=== PATIENT | male | born 1985 | race Two or more races ===

== ENCOUNTER 2022-10-27 19:27 | Inpatient (IN) | payer MEDICAID ==
[~2022-10-27] VITALS: Ht 167.6 cm; Wt 65.4 kg
[2022-10-27] MEDS ORDERED: SODIUM CHLORIDE 0.9% 1,000 ML IV ONE (20:00)
[2022-10-27] MEDS ORDERED: LORazepam 2 MG/ML VIAL IVP ONE (20:00)
[2022-10-27 20:07] LABS: BASOPHILS % (AUTO) 1.4 % (0.0-2.0); EOSINOPHILS % (AUTO) 1.6 % (1.0-6.0); HEMATOCRIT 41.2 % (41-53); HEMOGLOBIN 13.8 g/dL (13.5-17.5); LYMPHOCYTES # (AUTO) 2.4 K/uL (1.0-4.8); LYMPHOCYTES % (AUTO) 44.3 % (22.0-44.0); MEAN CORPUSCULAR HGB CONC 33.4 G/dL (31.0-37.0); MEAN CORPUSCULAR VOLUME 93 fL (80-100); MONOCYTES # (AUTO) 0.7 K/uL (0.1-1.0); MONOCYTES % (AUTO) 12.4 % (2.0-9.0); NEUTROPHILS # (AUTO) 2.2 K/uL (1.8-7.7); NEUTROPHILS % (AUTO) 40.3 % (40.0-70.0); PLATELET COUNT (AUTO) 276 K/uL (150-450); RED BLOOD CELL COUNT(AUTO) 4.44 MIL/uL (4.50-5.90); RED CELL DISTRIBUTION WIDTH 18.9 % (11.5-14.5)
[2022-10-27 20:18] LABS: ANION GAP 15 mmol/L (8-16); CARBON DIOXIDE 29 mmol/L (22-29); CHLORIDE 96 mmol/L (98-107); CREATININE 0.88 mg/dL (0.60-1.30); GLUCOSE,RANDOM 141 mg/dL (70-110); POTASSIUM 3.3 mmol/L (3.5-5.1); SODIUM SERUM 140 mmol/L (136-145); UREA NITROGEN, BLOOD 8 mg/dL (7-18)
[2022-10-27 20:19] LABS: GLOMERULAR FILTR. RATE CALC > 60 mL/min (>60)
[2022-10-27 20:24] LABS: ALANINE AMINOTRANSFERASE 98 U/L (12-78); ALBUMIN 3.9 g/dL (3.4-5.0); ALKALINE PHOSPHATASE 61 U/L (46-116); ASPARTATE AMINOTRANSFERASE 218 U/L (15-37); BILIRUBIN,TOTAL 1.8 mg/dL (0.1-1.0); TOTAL PROTEIN, SERUM 8.5 g/dL (6.4-8.2)
[2022-10-27 20:40] LABS: COVID AG,FIA SOURCE NASOPHARYNGEAL
[2022-10-27] MEDS ORDERED: ONDANSETRON HCL 4 MG/2 ML VIAL IVP PRN (21:45)
[2022-10-27] MEDS ORDERED: ACETAMINOPHEN 325 MG TABLET PO PRN (21:45)
[2022-10-27] MEDS ORDERED: LORazepam 2 MG/ML VIAL IVP PRN (21:45)
[2022-10-27 23:00] VITALS: BP 124/80
[2022-10-28] VITALS (7 sets, daily range): BP systolic 124–156; BP diastolic 74–110
[2022-10-28] MEDS ORDERED: MAGNESIUM SULFATE 2 GM/WATER 50 ML IV ONE (00:45)
[2022-10-28] MEDS ORDERED: POTASSIUM CHLORIDE 20 MEQ ER TABLET PO ONE (00:45)
[2022-10-28] MEDS ORDERED: DEXTROSE 50%-WATER 25 GM/50 ML SYRINGE IVP PRN (00:45)
[2022-10-28] MEDS ORDERED: SODIUM CHLORIDE 0.9% 500 ML IV ONE (01:46)
[2022-10-28] MEDS ORDERED: HYDROCODONE/ACETAMINOPHEN 5-325 MG TABLET PO PRN (06:15)
[2022-10-28] MEDS ORDERED: MORPHINE SULFATE 2 MG/ML SYRINGE IVP PRN (06:15)
[2022-10-28] MEDS ORDERED: ZOLPIDEM TARTRATE 5 MG TABLET PO PRN (06:15)
[2022-10-28] MEDS ORDERED: MAGNESIUM HYDROXIDE SUSPENSION 30 ML UDCUP PO PRN (06:15)
[2022-10-28] MEDS ORDERED: MAGNESIUM SULFATE 2 GM, MVI, ADULT NO.1 WITH VIT K 10 ML, THIAMINE 100 MG, FOLIC ACID 1... IV ONE ×5 (06:15)
[2022-10-28] MEDS ORDERED: LORazepam 2 MG TABLET PO PRN (06:15)
[2022-10-28] MEDS ORDERED: BISACODYL 10 MG RECTAL RECTAL SUPPOSITORY PR PRN (06:15)
[2022-10-28] MEDS ORDERED: ACETAMINOPHEN 325 MG TABLET PO PRN (06:15)
[2022-10-28] MEDS ORDERED: ONDANSETRON HCL 4 MG/2 ML VIAL IVP PRN (06:15)
[2022-10-28 06:21] LABS: ANION GAP 12 mmol/L (8-16); CALCIUM, TOTAL 7.7 mg/dL (8.8-10.5); CARBON DIOXIDE 26 mmol/L (22-29); CHLORIDE 100 mmol/L (98-107); CREATININE 0.84 mg/dL (0.60-1.30); GLOMERULAR FILTR. RATE CALC > 60 mL/min (>60); GLUCOSE,RANDOM 110 mg/dL (70-110); POTASSIUM 3.4 mmol/L (3.5-5.1); SODIUM SERUM 138 mmol/L (136-145); UREA NITROGEN, BLOOD 8 mg/dL (7-18)
[2022-10-28] MEDS ORDERED: MAGNESIUM SULFATE 4 GM/WATER 100 ML IV PRN (06:30)
[2022-10-28] MEDS ORDERED: POTASSIUM CHLORIDE 20 MEQ ER TABLET PO PRN (06:30)
[2022-10-28] MEDS ORDERED: MAGNESIUM OXIDE 400 MG TABLET PO PRN (06:30)
[2022-10-28] MEDS ORDERED: MAGNESIUM SULFATE 2 GM/WATER 50 ML IV PRN (06:30)
[2022-10-28] MEDS ORDERED: POTASSIUM CHL 10 MEQ/WATER 50 ML IV PRN (06:30)
[2022-10-28 07:41] LABS: ALBUMIN 3.3 g/dL (3.4-5.0)
[2022-10-28] MEDS: HEPARIN SODIUM,PORCINE 5,000 UNITS/ML VIAL SQ SCH ×3 (08:47→23:47)
[2022-10-28] MEDS: DOCUSATE SODIUM 100 MG CAPSULE PO SCH ×2 (08:48→21:00)
[2022-10-28] MEDS: PANTOPRAZOLE SODIUM 40 MG DR TABLET PO SCH (08:48)
[2022-10-28] MEDS: INSULIN LISPRO 100 UNITS/ML SQ PRN ×4 (09:04→21:21)
[2022-10-28 15:31] LABS: GLUCOMETER DEV NAME(LOC) 5S.2B; GLUCOSE,POINT OF CARE 202 MG/DL (70-110)
[2022-10-28 15:31] LABS: GLUCOMETER DEV NAME(LOC) 5S.1B; GLUCOSE,POINT OF CARE 108 MG/DL (70-110)
[2022-10-28 20:21] LABS: GLUCOMETER DEV NAME(LOC) 5N.1C; GLUCOSE,POINT OF CARE 208 MG/DL (70-110)
[2022-10-29 04:37] VITALS: BP 153/95
[2022-10-29 06:12] LABS: BASOPHILS % (AUTO) 0.9 % (0.0-2.0); EOSINOPHILS % (AUTO) 2.2 % (1.0-6.0); HEMATOCRIT 33.6 % (41-53); HEMOGLOBIN 11.3 g/dL (13.5-17.5); LYMPHOCYTES # (AUTO) 1.1 K/uL (1.0-4.8); MEAN CORPUSCULAR HEMOGLOBIN 31.9 pg (26.0-34.0); MEAN CORPUSCULAR HGB CONC 33.5 G/dL (31.0-37.0); MEAN CORPUSCULAR VOLUME 95 fL (80-100); MONOCYTES # (AUTO) 0.5 K/uL (0.1-1.0); MONOCYTES % (AUTO) 10.6 % (2.0-9.0); NEUTROPHILS # (AUTO) 3.1 K/uL (1.8-7.7); NEUTROPHILS % (AUTO) 63.3 % (40.0-70.0); PLATELET COUNT (AUTO) 177 K/uL (150-450); RED BLOOD CELL COUNT(AUTO) 3.53 MIL/uL (4.50-5.90); RED CELL DISTRIBUTION WIDTH 18.7 % (11.5-14.5)
[2022-10-29 06:20] LABS: ANION GAP 7 mmol/L (8-16); CALCIUM, TOTAL 7.6 mg/dL (8.8-10.5); CARBON DIOXIDE 28 mmol/L (22-29); CHLORIDE 96 mmol/L (98-107); CREATININE 0.85 mg/dL (0.60-1.30); GLOMERULAR FILTR. RATE CALC > 60 mL/min (>60); GLUCOSE,RANDOM 326 mg/dL (70-110); POTASSIUM 3.8 mmol/L (3.5-5.1); SODIUM SERUM 131 mmol/L (136-145); UREA NITROGEN, BLOOD 5 mg/dL (7-18)
[2022-10-29] MEDS: INSULIN LISPRO 100 UNITS/ML SQ PRN (06:57)
[2022-10-29] MEDS ORDERED: LORazepam 2 MG TABLET PO PRN (07:00)
[2022-10-29 07:29] VITALS: BP 153/99
[2022-10-29] MEDS: PANTOPRAZOLE SODIUM 40 MG DR TABLET PO SCH (08:04)
[2022-10-29] MEDS: DOCUSATE SODIUM 100 MG CAPSULE PO SCH (08:04)
[2022-10-29] MEDS: HEPARIN SODIUM,PORCINE 5,000 UNITS/ML VIAL SQ SCH (08:04)
[2022-10-29] MEDS ORDERED: LORazepam 2 MG TABLET PO SCH (09:00)
[2022-10-29 11:05] VITALS: BP 130/100
[2022-10-29] MEDS ORDERED: MAGNESIUM SULFATE 4 GM/WATER 100 ML IV PRN (11:30)
[2022-10-29] MEDS ORDERED: MAGNESIUM OXIDE 400 MG TABLET PO PRN (11:30)
[2022-10-29] MEDS ORDERED: MAGNESIUM SULFATE 2 GM/WATER 50 ML IV PRN (11:30)
[2022-10-29 13:00] LABS: ALBUMIN 3.3 g/dL (3.4-5.0)
[2022-10-29 19:36] LABS: GLUCOMETER DEV NAME(LOC) 5N.1C; GLUCOSE,POINT OF CARE 182 MG/DL (70-110)
[2022-10-29 19:36] LABS: GLUCOMETER DEV NAME(LOC) 5N.1C; GLUCOSE,POINT OF CARE 225 MG/DL (70-110)
[2022-10-31] MEDS ORDERED: LORazepam 1 MG TABLET PO PRN (07:00)
[2022-10-31] MEDS ORDERED: LORazepam 1 MG TABLET PO SCH (09:00)
[2022-11-01] MEDS ORDERED: LORazepam 1 MG TABLET PO PRN (07:00)
== END 2022-10-29 13:00 | disposition left against medical advice (07) | DRG 425 ==
LOC: EMS 19:42 → 5S 22:10
PROVIDERS: ADMIT Internal Medicine; ATTEND Internal Medicine
DX: E87.6 Hypokalemia (principal); K70.9 Alcoholic liver disease, unspecified; E11.65 Type 2 diabetes mellitus with hyperglycemia; E83.42 Hypomagnesemia; I10 Essential (primary) hypertension; Y90.8 Blood alcohol level of 240 mg/100 ml or more; F41.9 Anxiety disorder, unspecified; Z20.822 Contact with and (suspected) exposure to COVID-19; F10.139 Alcohol abuse with withdrawal, unspecified; F10.129 Alcohol abuse with intoxication, unspecified; Z79.899 Other long term (current) drug therapy
CPT/HCPCS: 70450; 71045; 80048; 80053; 82040; 82962; 83735; 84132; 85025; 93005; 99285; G0480; J1644; J2060; J3411; J3475; J3480; J3490; J7030; J7040; 36415-L1; 36415-TC

== ENCOUNTER 2024-01-16 08:06 | Inpatient (IN) | payer MEDICAID ==
[~2024-01-16] VITALS: Ht 167.6 cm; Wt 61.0 kg
[~2024-01-16 08:06] MED LIST: ARIP5TAB37 PO; CITA-144 PO; FOLI-130 PO; INSLAN SQ; INSU100C6 SQ; LISI-893 PO; PANT-31 PO; QUET25TA36 PO; THIA100V4 IVP
[2024-01-16] MEDS: SODIUM CHLORIDE 0.9% 1,000 ML IV ONE ×2 (08:38→13:09)
[2024-01-16 08:57] LABS: BASOPHILS % (AUTO) 0.5 % (0.0-2.0); EOSINOPHILS % (AUTO) 0 % (1.0-6.0); HEMATOCRIT 45.4 % (41-53); HEMOGLOBIN 15.5 g/dL (13.5-17.5); LYMPHOCYTES # (AUTO) 0.6 K/uL (1.0-4.8); LYMPHOCYTES % (AUTO) 9.6 % (22.0-44.0); MEAN CORPUSCULAR HEMOGLOBIN 34.4 pg (26.0-34.0); MEAN CORPUSCULAR HGB CONC 34.1 G/dL (31.0-37.0); MEAN CORPUSCULAR VOLUME 101 fL (80-100); MONOCYTES # (AUTO) 0.3 K/uL (0.1-1.0); MONOCYTES % (AUTO) 5.2 % (2.0-9.0); NEUTROPHILS # (AUTO) 5.6 K/uL (1.8-7.7); NEUTROPHILS % (AUTO) 84.7 % (40.0-70.0); PLATELET COUNT (AUTO) 102 K/uL (150-450); RED BLOOD CELL COUNT(AUTO) 4.49 MIL/uL (4.50-5.90); RED CELL DISTRIBUTION WIDTH 14.1 % (11.5-14.5); WHITE BLOOD COUNT (AUTO) 6.6 K/uL (4.5-11.0)
[2024-01-16 09:07] LABS: ANION GAP 32 mmol/L (8-16); CALCIUM, TOTAL 7.4 mg/dL (8.8-10.5); CARBON DIOXIDE 11 mmol/L (22-29); CHLORIDE 84 mmol/L (98-107); CREATININE 0.82 mg/dL (0.60-1.30); GLOMERULAR FILTR. RATE CALC > 60 mL/min (>60); GLUCOSE,RANDOM 241 mg/dL (70-110); POTASSIUM 3.9 mmol/L (3.5-5.1); SODIUM SERUM 127 mmol/L (136-145); UREA NITROGEN, BLOOD 7 mg/dL (7-18)
[2024-01-16 09:12] LABS: ALCOHOL, BLOOD (SERUM) 129 mg/dL (0-10)
[2024-01-16 09:15] LABS: TROPONIN I-HIGH SENSITIVITY 15 ng/L (<76)
[2024-01-16 09:23] LABS: B-TYPE NATRIURETIC PEPTIDE 16 pg/mL (0-100)
[2024-01-16] MEDS ORDERED: SODIUM CHLORIDE 0.45% 1,000 ML IV PRN (09:30)
[2024-01-16] MEDS ORDERED: DEXTROSE 50%-WATER 25 GM/50 ML SYRINGE IVP PRN (09:30)
[2024-01-16] MEDS: SODIUM CHLORIDE 0.9% 1,000 ML IV SCH (09:30)
[2024-01-16] MEDS ORDERED: INSULIN REGULAR, HUMAN 100 UNITS/ML IVP PRN (09:30)
[2024-01-16 09:32] LABS: ALKALINE PHOSPHATASE 195 U/L (46-116); ASPARTATE AMINOTRANSFERASE 518 U/L (15-37); BILIRUBIN,TOTAL 2.2 mg/dL (0.1-1.0); CREATINE KINASE, TOTAL ONLY 141 U/L (39-308); LIPASE 26 U/L (16-77); PHOSPHORUS 2.5 mg/dL (2.5-4.9); TOTAL PROTEIN, SERUM 7.3 g/dL (6.4-8.2)
[2024-01-16 09:55] LABS: ALANINE AMINOTRANSFERASE 31 U/L (12-78)
[2024-01-16] MEDS ORDERED: 0.9% SODIUM CHLORIDE 10 ML SYRINGE IVP PRN (10:00)
[2024-01-16 10:03] LABS: LACTIC ACID 7.1 mmol/L (0.4-2.0)
[2024-01-16 10:05] LABS: ABG BASE EXCESS -21.7 mmol/L (-2.0-3.0); ABG CARBOXYHEMOGLOBIN 0.6 % (0.0-1.5); ABG HCO3 10.8 mmol/L (22.0-26.0); ABG METHEMOGLOBIN 0.7 % (0.0-1.5); ABG OXYGEN SATURATION 98.2 % (95.0-98.0); ABG OXYHEMOGLOBIN 96.9 % (94.0-100.0); ABG TOTAL HEMOGLOBIN 15.3 G/dL (12.0-18.0); PO2, ARTERIAL BG 117.1 mmHg (92.0-100.0); SOURCE, BLOOD GAS ARTERIAL; TEMPERATURE, FAHRENHEIT, BG 98.3 FAHREN (96.0-98.6)
[2024-01-16 10:06] LABS: ABG A-A DIFF O2 11.9 mmHg (10-20.0); ABG PCO2 17 mmHg (35-45); ABG PH 7.191 (7.350-7.450); ALLEN TEST, BLOOD GAS Positive; SITE, BLOOD GAS LFT RADIAL
[2024-01-16 10:07] LABS: O2 DEVICE,BLOOD GAS ROOM AIR (ROOM AIR)
[2024-01-16] MEDS: INSULIN REGULAR, HUMAN 100 UNITS in SODIUM CHLORIDE 0.9% 99 ML IV PRN (10:20)
[2024-01-16] MEDS: DEXTROSE 5%-0.45% SODIUM CHL 1,000 ML IV PRN (10:21)
[2024-01-16] MEDS: POTASSIUM CHLORIDE 40 MEQ in SODIUM CHLORIDE 0.45% 1,000 ML IV PRN (10:21)
[2024-01-16 10:22] LABS: ACETONE,BLOOD NEGATIVE (NEGATIVE)
[2024-01-16] MEDS: MAGNESIUM SULFATE 1 GM in DEXTROSE 5%-WATER 50 ML IV ONE (10:23)
[2024-01-16] MEDS ORDERED: IOHEXOL 350 MG/ML 100 ML VIAL ONE (10:24)
[2024-01-16] MEDS ORDERED: SODIUM CHLORIDE 0.9% 100 ML ONE (10:24)
[2024-01-16] MEDS: ONDANSETRON HCL 4 MG/2 ML VIAL IVP PRN ×2 (10:25→17:10)
[2024-01-16] MEDS: THIAMINE 100 MG/ML 2 ML VIAL IVP ONE (10:26)
[2024-01-16] MEDS: LORazepam 2 MG/ML VIAL IVP ONE (10:26)
[2024-01-16 11:54] LABS: APPEARANCE,URINE CLEAR (CLEAR); BILIRUBIN,URINE NEGATIVE (NEGATIVE); COLOR,URINE YELLOW (YELLOW); GLUCOSE, URINE (UA) >=1000 mg/dL (NEGATIVE); KETONES,URINE =>150 mg/dL (NEGATIVE); LEUKOCYTE ESTERASE ,URINE NEGATIVE (NEGATIVE); NITRATE,URINE NEGATIVE (NEGATIVE); OCCULT BLOOD,URINE MODERATE (NEGATIVE); PROTEIN,URINE 300-600,SEE CONFIRM mg/dL (NEGATIVE); SPECIFIC GRAVITIY, URINE 1.035 (1.003-1.030); UROBILINOGEN,URINE <=1.0 mg/dL (<=1.0)
[2024-01-16 12:03] LABS: SULFOSALICYLIC ACID,URINE 3+ (Negative)
[2024-01-16 12:05] LABS: BACTERIA,URINE None Seen /HPF (None Seen); WBC,URINE None Seen /HPF (0-5)
[2024-01-16 12:16] LABS: ALCOHOL, URINE DRUG SCREEN POSITIVE (NEGATIVE); AMPHET/METH SCREEN,URINE NEGATIVE (NEGATIVE); BARBITURATE SCREEN, URINE NEGATIVE (NEGATIVE); BENZODIAZEPINES SCREEN,URINE POSITIVE (NEGATIVE); CANNABINOID SCREEN,URINE NEGATIVE (NEGATIVE); COCAINE SCREEN,URINE NEGATIVE (NEGATIVE); METHADONE SCREEN, URINE NEGATIVE (NEGATIVE); OPIATE SCREEN,URINE NEGATIVE (NEGATIVE); PHENCYCLIDINE SCREEN,URINE NEGATIVE (NEGATIVE)
[2024-01-16 12:25] LABS: ANION GAP 33 mmol/L (8-16); CALCIUM, TOTAL 6.6 mg/dL (8.8-10.5); CHLORIDE 88 mmol/L (98-107); CREATININE 0.86 mg/dL (0.60-1.30); GLOMERULAR FILTR. RATE CALC > 60 mL/min (>60); GLUCOSE,RANDOM 199 mg/dL (70-110); POTASSIUM 3.7 mmol/L (3.5-5.1); SODIUM SERUM 128 mmol/L (136-145); UREA NITROGEN, BLOOD 6 mg/dL (7-18)
[2024-01-16 12:30] LABS: CARBON DIOXIDE 7 mmol/L (22-29)
[2024-01-16] MEDS: CALCIUM GLUCONATE 1,000 MG in DEXTROSE 5%-WATER 50 ML IV ONE (13:09)
[2024-01-16 13:36] LABS: GLUCOMETER DEV NAME(LOC) ERT.5; GLUCOSE,POINT OF CARE 189 MG/DL (70-110)
[2024-01-16 13:36] LABS: GLUCOMETER DEV NAME(LOC) ERT.5; GLUCOSE,POINT OF CARE 195 MG/DL (70-110)
[2024-01-16 13:36] LABS: GLUCOMETER DEV NAME(LOC) ERT.5; GLUCOSE,POINT OF CARE 228 MG/DL (70-110)
[2024-01-16] MEDS: PIPERACILLIN SODIUM/TAZOBACTAM 4.5 GM in DEXTROSE 5%-WATER 100 ML IV ONE (15:25)
[2024-01-16 15:31] LABS: ANION GAP 21 mmol/L (8-16); CALCIUM, TOTAL 6.9 mg/dL (8.8-10.5); CARBON DIOXIDE 17 mmol/L (22-29); CHLORIDE 90 mmol/L (98-107); CREATININE 0.94 mg/dL (0.60-1.30); GLOMERULAR FILTR. RATE CALC > 60 mL/min (>60); GLUCOSE,RANDOM 200 mg/dL (70-110); POTASSIUM 3.5 mmol/L (3.5-5.1); SALICYLATE < 0.2 mg/dL (2.8-20.0); SODIUM SERUM 128 mmol/L (136-145); UREA NITROGEN, BLOOD 5 mg/dL (7-18)
[2024-01-16 15:34] LABS: ACETAMINOPHEN < 2 mcg/mL (10-30)
[2024-01-16 15:54] LABS: PHOSPHORUS 0.7 mg/dL (2.5-4.9)
[2024-01-16 16:00] VITALS: BP 125/72; PULSE 118; RESP 21; TEMP 101.5
[2024-01-16 16:25] LABS: ABG BASE EXCESS -9.6 mmol/L (-2.0-3.0); ABG CARBOXYHEMOGLOBIN 0.6 % (0.0-1.5); ABG HCO3 18.3 mmol/L (22.0-26.0); ABG METHEMOGLOBIN 0.3 % (0.0-1.5); ABG OXYGEN CONTENT 18.2 mL/dL (15.0-23.0); ABG OXYHEMOGLOBIN 96.1 % (94.0-100.0); ABG PH 7.394 (7.350-7.450); ABG TOTAL HEMOGLOBIN 13.4 G/dL (12.0-18.0); PO2, ARTERIAL BG 97.8 mmHg (92.0-100.0); SOURCE, BLOOD GAS ARTERIAL
[2024-01-16 16:26] LABS: ABG PCO2 25 mmHg (35-45); ALLEN TEST, BLOOD GAS Positive; O2 DEVICE,BLOOD GAS ROOM AIR (ROOM AIR); SITE, BLOOD GAS RT RADIAL
[2024-01-16] MEDS ORDERED: ZOLPIDEM TARTRATE 5 MG TABLET PO PRN (16:45)
[2024-01-16] MEDS ORDERED: IPRATROPIUM BROMIDE 0.5 MG/2.5 ML NEB SOLUTION NEB PRN (16:45)
[2024-01-16] MEDS ORDERED: MAGNESIUM HYDROXIDE SUSPENSION 30 ML UDCUP PO PRN (16:45)
[2024-01-16] MEDS ORDERED: ALBUTEROL SULFATE 2.5 MG/0.5 ML NEB SOLUTION NEB PRN (16:45)
[2024-01-16] MEDS ORDERED: HYDROCODONE/ACETAMINOPHEN 5-325 MG TABLET PO PRN (16:45)
[2024-01-16] MEDS ORDERED: BISACODYL 10 MG RECTAL RECTAL SUPPOSITORY PR PRN (16:45)
[2024-01-16] MEDS: SODIUM BICARBONATE 150 MEQ in DEXTROSE 5%-WATER 1,000 ML IV SCH (16:58)
[2024-01-16] MEDS ORDERED: THIAMINE 100 MG/ML 2 ML VIAL IVP SCH (17:00)
[2024-01-16] MEDS: POTASSIUM PHOS,M-BASIC-D-BASIC 30 MMOL in DEXTROSE 5%-WATER 250 ML IV ONE (17:07)
[2024-01-16] MEDS: ACETAMINOPHEN 325 MG TABLET PO PRN (17:09)
[2024-01-16 17:50] LABS: GLUCOMETER DEV NAME(LOC) ICUN.5; GLUCOSE,POINT OF CARE 239 MG/DL (70-110)
[2024-01-16 17:50] LABS: GLUCOMETER DEV NAME(LOC) ICUN.5; GLUCOSE,POINT OF CARE 171 MG/DL (70-110)
[2024-01-16] MEDS ORDERED: SODIUM CHLORIDE 0.9% 250 ML IV ONE (18:16)
[2024-01-16] MEDS: MORPHINE SULFATE 2 MG/ML SYRINGE IVP PRN (18:40)
[2024-01-16 20:00] VITALS: BP 160/105; PULSE 112; RESP 23; TEMP 99.3
[2024-01-16 20:21] LABS: ANION GAP 20 mmol/L (8-16); CARBON DIOXIDE 16 mmol/L (22-29); CHLORIDE 90 mmol/L (98-107); CREATININE 1.01 mg/dL (0.60-1.30); GLOMERULAR FILTR. RATE CALC > 60 mL/min (>60); GLUCOSE,RANDOM 284 mg/dL (70-110); POTASSIUM 3.5 mmol/L (3.5-5.1); SODIUM SERUM 126 mmol/L (136-145); UREA NITROGEN, BLOOD 5 mg/dL (7-18)
[2024-01-16 20:25] LABS: PHOSPHORUS 0.6 mg/dL (2.5-4.9)
[2024-01-16] MEDS: QUEtiapine FUMARATE 25 MG TABLET PO SCH (20:56)
[2024-01-16 21:00] VITALS: BP 156/102; PULSE 112; RESP 23; TEMP 99.3; O2SAT 100
[2024-01-16] MEDS: DOCUSATE SODIUM 100 MG CAPSULE PO SCH (21:00)
[2024-01-16] MEDS: ChlordiazePOXIDE HCL 25 MG CAPSULE PO PRN (21:11)
[2024-01-16] MEDS: MAGNESIUM SULFATE 3 GM in DEXTROSE 5%-WATER 100 ML IV ONE (22:17)
[2024-01-17] VITALS (7 sets, daily range): BP systolic 112–151; BP diastolic 61–104; PULSE 89–114; RESP 12–21; TEMP 98.1–98.9; O2SAT 95–99
[2024-01-17] MEDS: HEPARIN SODIUM,PORCINE 5,000 UNITS/ML VIAL SQ SCH
[2024-01-17 00:51] LABS: GLUCOMETER DEV NAME(LOC) ICUN.5; GLUCOSE,POINT OF CARE 286 MG/DL (70-110)
[2024-01-17 01:10] LABS: GLUCOMETER DEV NAME(LOC) ICUN.5; GLUCOSE,POINT OF CARE 276 MG/DL (70-110)
[2024-01-17 01:12] LABS: ANION GAP 28 mmol/L (8-16); CALCIUM, TOTAL 6.5 mg/dL (8.8-10.5); CHLORIDE 89 mmol/L (98-107); CREATININE 0.99 mg/dL (0.60-1.30); GLOMERULAR FILTR. RATE CALC > 60 mL/min (>60); GLUCOSE,RANDOM 303 mg/dL (70-110); PHOSPHORUS 2.5 mg/dL (2.5-4.9); POTASSIUM 3.7 mmol/L (3.5-5.1); SODIUM SERUM 126 mmol/L (136-145); UREA NITROGEN, BLOOD 4 mg/dL (7-18)
[2024-01-17 01:21] LABS: CARBON DIOXIDE 9 mmol/L (22-29)
[2024-01-17] MEDS: SODIUM PHOS,M-BASIC-D-BASIC 30 MMOL in DEXTROSE 5%-WATER 250 ML IV ONE ×2 (01:53→20:05)
[2024-01-17 05:20] LABS: ALBUMIN 2.5 g/dL (3.4-5.0); ALKALINE PHOSPHATASE 155 U/L (46-116); ANION GAP 26 mmol/L (8-16); ASPARTATE AMINOTRANSFERASE 435 U/L (15-37); BILIRUBIN,TOTAL 2.6 mg/dL (0.1-1.0); CALCIUM, TOTAL 6.4 mg/dL (8.8-10.5); CHLORIDE 92 mmol/L (98-107); CREATININE 1.04 mg/dL (0.60-1.30); GLOMERULAR FILTR. RATE CALC > 60 mL/min (>60); GLUCOSE,RANDOM 224 mg/dL (70-110); PHOSPHORUS 2.1 mg/dL (2.5-4.9); POTASSIUM 3.4 mmol/L (3.5-5.1); SODIUM SERUM 127 mmol/L (136-145); TOTAL PROTEIN, SERUM 5.9 g/dL (6.4-8.2); UREA NITROGEN, BLOOD 3 mg/dL (7-18)
[2024-01-17 06:17] LABS: CARBON DIOXIDE 9 mmol/L (22-29)
[2024-01-17 06:21] LABS: GLUCOMETER DEV NAME(LOC) ICUN.5; GLUCOSE,POINT OF CARE 222 MG/DL (70-110)
[2024-01-17 06:21] LABS: GLUCOMETER DEV NAME(LOC) ICUN.5; GLUCOSE,POINT OF CARE 242 MG/DL (70-110)
[2024-01-17 06:21] LABS: GLUCOMETER DEV NAME(LOC) ICUN.5; GLUCOSE,POINT OF CARE 272 MG/DL (70-110)
[2024-01-17 06:21] LABS: GLUCOMETER DEV NAME(LOC) ICUN.5; GLUCOSE,POINT OF CARE 197 MG/DL (70-110)
[2024-01-17] MEDS ORDERED: ChlordiazePOXIDE HCL 25 MG CAPSULE PO PRN (07:00)
[2024-01-17] MEDS: THIAMINE 100 MG TABLET PO SCH (07:52)
[2024-01-17] MEDS: PANTOPRAZOLE SODIUM 40 MG/VIAL IVP SCH (07:52)
[2024-01-17] MEDS: ARIPiprazole 5 MG TABLET PO SCH (07:52)
[2024-01-17] MEDS: THIAMINE 100 MG/ML 2 ML VIAL IVP SCH (07:53)
[2024-01-17] MEDS: CITALOPRAM HYDROBROMIDE 20 MG TABLET PO SCH (07:53)
[2024-01-17] MEDS: FOLIC ACID 1 MG TABLET PO SCH ×2 (07:54→08:47)
[2024-01-17] MEDS: MULTIVITAMINS WITH MINERALS, THERAPEUTIC TABLET PO SCH (07:55)
[2024-01-17] MEDS: ChlordiazePOXIDE HCL 25 MG CAPSULE PO SCH (07:58)
[2024-01-17] MEDS: LISINOPRIL 10 MG TABLET PO SCH (07:59)
[2024-01-17 08:52] LABS: ALANINE AMINOTRANSFERASE 56 U/L (12-78)
[2024-01-17] MEDS ORDERED: PANTOPRAZOLE SODIUM 40 MG DR TABLET PO SCH (09:00)
[2024-01-17 09:14] LABS: ANION GAP 24 mmol/L (8-16); CALCIUM, TOTAL 6.5 mg/dL (8.8-10.5); CARBON DIOXIDE 12 mmol/L (22-29); CHLORIDE 95 mmol/L (98-107); GLOMERULAR FILTR. RATE CALC > 60 mL/min (>60); GLUCOSE,RANDOM 87 mg/dL (70-110); SODIUM SERUM 131 mmol/L (136-145); UREA NITROGEN, BLOOD 1 mg/dL (7-18)
[2024-01-17 09:26] LABS: GLUCOMETER DEV NAME(LOC) ICUN.5; GLUCOSE,POINT OF CARE 168 MG/DL (70-110)
[2024-01-17 09:26] LABS: GLUCOMETER DEV NAME(LOC) ICUN.5; GLUCOSE,POINT OF CARE 98 MG/DL (70-110)
[2024-01-17] MEDS: POTASSIUM CHLORIDE 20 MEQ ER TABLET PO ONE (10:01)
[2024-01-17 10:56] LABS: GLUCOMETER DEV NAME(LOC) ICU.S6; GLUCOSE,POINT OF CARE 72 MG/DL (70-110)
[2024-01-17 10:56] LABS: GLUCOMETER DEV NAME(LOC) ICU.S6; GLUCOSE,POINT OF CARE 108 MG/DL (70-110)
[2024-01-17 10:56] LABS: GLUCOMETER DEV NAME(LOC) ICU.S6; GLUCOSE,POINT OF CARE 111 MG/DL (70-110)
[2024-01-17 10:56] LABS: GLUCOMETER DEV NAME(LOC) ICU.S6; GLUCOSE,POINT OF CARE 79 MG/DL (70-110)
[2024-01-17 12:10] LABS: GLUCOMETER DEV NAME(LOC) ICU.S6; GLUCOSE,POINT OF CARE 161 MG/DL (70-110)
[2024-01-17 12:10] LABS: GLUCOMETER DEV NAME(LOC) ICU.S6; GLUCOSE,POINT OF CARE 115 MG/DL (70-110)
[2024-01-17 13:10] LABS: GLUCOMETER DEV NAME(LOC) ICUN.5; GLUCOSE,POINT OF CARE 171 MG/DL (70-110)
[2024-01-17 14:21] LABS: GLUCOMETER DEV NAME(LOC) ICUN.5; GLUCOSE,POINT OF CARE 191 MG/DL (70-110)
[2024-01-17 15:11] LABS: GLUCOMETER DEV NAME(LOC) ICU.S6; GLUCOSE,POINT OF CARE 169 MG/DL (70-110)
[2024-01-17 15:39] LABS: ANION GAP 19 mmol/L (8-16); CALCIUM, TOTAL 6.3 mg/dL (8.8-10.5); CARBON DIOXIDE 14 mmol/L (22-29); CHLORIDE 94 mmol/L (98-107); CREATININE 0.92 mg/dL (0.60-1.30); GLOMERULAR FILTR. RATE CALC > 60 mL/min (>60); GLUCOSE,RANDOM 158 mg/dL (70-110); POTASSIUM 4.1 mmol/L (3.5-5.1); SODIUM SERUM 127 mmol/L (136-145); UREA NITROGEN, BLOOD 2 mg/dL (7-18)
[2024-01-17 15:51] LABS: GLUCOMETER DEV NAME(LOC) ICUN.5; GLUCOSE,POINT OF CARE 158 MG/DL (70-110)
[2024-01-17 17:00] LABS: GLUCOMETER DEV NAME(LOC) ICUN.5; GLUCOSE,POINT OF CARE 160 MG/DL (70-110)
[2024-01-17 18:25] LABS: GLUCOMETER DEV NAME(LOC) ICU.S6; GLUCOSE,POINT OF CARE 112 MG/DL (70-110)
[2024-01-17] MEDS ORDERED: SODIUM PHOS,M-BASIC-D-BASIC 30 MMOL in DEXTROSE 5%-WATER 250 ML IV ONE (18:45)
[2024-01-17] MEDS: POTASSIUM CHL 20 MEQ/0.45% NS 1,000 ML IV PRN (21:11)
[2024-01-17 21:34] LABS: ANION GAP 17 mmol/L (8-16); CALCIUM, TOTAL 6.4 mg/dL (8.8-10.5); CARBON DIOXIDE 15 mmol/L (22-29); CHLORIDE 96 mmol/L (98-107); GLOMERULAR FILTR. RATE CALC > 60 mL/min (>60); GLUCOSE,RANDOM 133 mg/dL (70-110); POTASSIUM 3.4 mmol/L (3.5-5.1); SODIUM SERUM 128 mmol/L (136-145); UREA NITROGEN, BLOOD 1 mg/dL (7-18)
[2024-01-17 22:11] LABS: GLUCOMETER DEV NAME(LOC) ICU.S6; GLUCOSE,POINT OF CARE 113 MG/DL (70-110)
[2024-01-17 22:11] LABS: GLUCOMETER DEV NAME(LOC) ICU.S6; GLUCOSE,POINT OF CARE 132 MG/DL (70-110)
[2024-01-17 22:11] LABS: GLUCOMETER DEV NAME(LOC) ICUN.5; GLUCOSE,POINT OF CARE 130 MG/DL (70-110)
[2024-01-17] MEDS ORDERED: SODIUM CHLORIDE 0.9% 250 ML IV ONE (23:07)
[2024-01-18] VITALS (7 sets, daily range): BP systolic 103–127; BP diastolic 48–103; PULSE 79–113; RESP 12–28; TEMP 97.7–98.7; O2SAT 98–99
[2024-01-18 01:20] LABS: GLUCOMETER DEV NAME(LOC) ICU.S6; GLUCOSE,POINT OF CARE 160 MG/DL (70-110)
[2024-01-18 01:20] LABS: GLUCOMETER DEV NAME(LOC) ICU.S6; GLUCOSE,POINT OF CARE 149 MG/DL (70-110)
[2024-01-18 01:20] LABS: GLUCOMETER DEV NAME(LOC) ICU.S6; GLUCOSE,POINT OF CARE 154 MG/DL (70-110)
[2024-01-18 02:21] LABS: GLUCOMETER DEV NAME(LOC) ICUN.5; GLUCOSE,POINT OF CARE 134 MG/DL (70-110)
[2024-01-18 02:21] LABS: GLUCOMETER DEV NAME(LOC) ICU.S6; GLUCOSE,POINT OF CARE 140 MG/DL (70-110)
[2024-01-18 03:12] LABS: ANION GAP 15 mmol/L (8-16); CALCIUM, TOTAL 6.6 mg/dL (8.8-10.5); CARBON DIOXIDE 16 mmol/L (22-29); CHLORIDE 98 mmol/L (98-107); CREATININE 0.76 mg/dL (0.60-1.30); GLOMERULAR FILTR. RATE CALC > 60 mL/min (>60); GLUCOSE,RANDOM 140 mg/dL (70-110); POTASSIUM 3.8 mmol/L (3.5-5.1); SODIUM SERUM 129 mmol/L (136-145); UREA NITROGEN, BLOOD 1 mg/dL (7-18)
[2024-01-18 05:06] LABS: BASOPHILS % (AUTO) 1.9 % (0.0-2.0); EOSINOPHILS % (AUTO) 1.8 % (1.0-6.0); HEMATOCRIT 33.3 % (41-53); HEMOGLOBIN 11.3 g/dL (13.5-17.5); LYMPHOCYTES # (AUTO) 0.9 K/uL (1.0-4.8); LYMPHOCYTES % (AUTO) 26.8 % (22.0-44.0); MEAN CORPUSCULAR HEMOGLOBIN 33.8 pg (26.0-34.0); MEAN CORPUSCULAR VOLUME 99 fL (80-100); MONOCYTES # (AUTO) 0.3 K/uL (0.1-1.0); MONOCYTES % (AUTO) 9.5 % (2.0-9.0); PLATELET COUNT (AUTO) 54 K/uL (150-450); RED BLOOD CELL COUNT(AUTO) 3.35 MIL/uL (4.50-5.90); RED CELL DISTRIBUTION WIDTH 14.2 % (11.5-14.5); WHITE BLOOD COUNT (AUTO) 3.3 K/uL (4.5-11.0)
[2024-01-18 05:28] LABS: PHOSPHORUS 1.2 mg/dL (2.5-4.9)
[2024-01-18 06:14] LABS: ANION GAP 13 mmol/L (8-16); CALCIUM, TOTAL 6.8 mg/dL (8.8-10.5); CARBON DIOXIDE 18 mmol/L (22-29); CHLORIDE 98 mmol/L (98-107); CREATININE 0.79 mg/dL (0.60-1.30); GLOMERULAR FILTR. RATE CALC > 60 mL/min (>60); GLUCOSE,RANDOM 133 mg/dL (70-110); POTASSIUM 3.9 mmol/L (3.5-5.1); SODIUM SERUM 129 mmol/L (136-145); UREA NITROGEN, BLOOD 1 mg/dL (7-18)
[2024-01-18 07:25] LABS: GLUCOMETER DEV NAME(LOC) ICUN.5; GLUCOSE,POINT OF CARE 129 MG/DL (70-110)
[2024-01-18 07:25] LABS: GLUCOMETER DEV NAME(LOC) ICUN.5; GLUCOSE,POINT OF CARE 121 MG/DL (70-110)
[2024-01-18 07:25] LABS: GLUCOMETER DEV NAME(LOC) ICUN.5; GLUCOSE,POINT OF CARE 123 MG/DL (70-110)
[2024-01-18] MEDS: SODIUM PHOS,M-BASIC-D-BASIC 30 MMOL in DEXTROSE 5%-WATER 250 ML IV ONE (09:13)
[2024-01-18] MEDS: MAGNESIUM SULFATE 3 GM in DEXTROSE 5%-WATER 100 ML IV ONE (09:13)
[2024-01-18 09:15] LABS: ANION GAP 14 mmol/L (8-16); CALCIUM, TOTAL 7.1 mg/dL (8.8-10.5); CARBON DIOXIDE 18 mmol/L (22-29); CHLORIDE 100 mmol/L (98-107); CREATININE 0.79 mg/dL (0.60-1.30); GLOMERULAR FILTR. RATE CALC > 60 mL/min (>60); GLUCOSE,RANDOM 183 mg/dL (70-110); POTASSIUM 4.5 mmol/L (3.5-5.1); SODIUM SERUM 132 mmol/L (136-145)
[2024-01-18 09:24] LABS: UREA NITROGEN, BLOOD 1 mg/dL (7-18)
[2024-01-18 11:16] LABS: GLUCOMETER DEV NAME(LOC) ICUN.5; GLUCOSE,POINT OF CARE 194 MG/DL (70-110)
[2024-01-18 11:16] LABS: GLUCOMETER DEV NAME(LOC) ICU.S6; GLUCOSE,POINT OF CARE 205 MG/DL (70-110)
[2024-01-18 11:41] LABS: GLUCOMETER DEV NAME(LOC) ICU.S6; GLUCOSE,POINT OF CARE 247 MG/DL (70-110)
[2024-01-18 13:20] LABS: GLUCOMETER DEV NAME(LOC) ICU.S6; GLUCOSE,POINT OF CARE 239 MG/DL (70-110)
[2024-01-18 15:58] LABS: ANION GAP 10 mmol/L (8-16); CARBON DIOXIDE 22 mmol/L (22-29); CHLORIDE 98 mmol/L (98-107); CREATININE 0.78 mg/dL (0.60-1.30); GLOMERULAR FILTR. RATE CALC > 60 mL/min (>60); GLUCOSE,RANDOM 169 mg/dL (70-110); POTASSIUM 4.2 mmol/L (3.5-5.1); SODIUM SERUM 130 mmol/L (136-145); UREA NITROGEN, BLOOD 1 mg/dL (7-18)
[2024-01-18 17:00] LABS: GLUCOMETER DEV NAME(LOC) ICUN.5; GLUCOSE,POINT OF CARE 177 MG/DL (70-110)
[2024-01-18 18:36] LABS: GLUCOMETER DEV NAME(LOC) ICU.S6; GLUCOSE,POINT OF CARE 152 MG/DL (70-110)
[2024-01-18] MEDS ORDERED: DEXTROSE 50%-WATER 25 GM/50 ML SYRINGE IVP PRN (19:30)
[2024-01-18 20:15] LABS: GLUCOMETER DEV NAME(LOC) ICUN.5; GLUCOSE,POINT OF CARE 169 MG/DL (70-110)
[2024-01-18] MEDS: INSULIN LISPRO 100 UNITS/ML SQ PRN (20:22)
[2024-01-18] MEDS: INSULIN GLARGINE,HUM.REC.ANLOG 100 UNITS/ML SQ SCH (20:23)
[2024-01-18 20:25] LABS: GLUCOMETER DEV NAME(LOC) ICUN.5; GLUCOSE,POINT OF CARE 171 MG/DL (70-110)
[2024-01-18 21:22] LABS: ANION GAP 9 mmol/L (8-16); CALCIUM, TOTAL 7.4 mg/dL (8.8-10.5); CARBON DIOXIDE 22 mmol/L (22-29); CHLORIDE 100 mmol/L (98-107); CREATININE 0.72 mg/dL (0.60-1.30); GLOMERULAR FILTR. RATE CALC > 60 mL/min (>60); GLUCOSE,RANDOM 174 mg/dL (70-110); POTASSIUM 4.2 mmol/L (3.5-5.1); SODIUM SERUM 131 mmol/L (136-145); UREA NITROGEN, BLOOD 2 mg/dL (7-18)
[2024-01-19] VITALS: BP 121/80; PULSE 106; RESP 15; TEMP 98.2
[2024-01-19 04:00] VITALS: BP 105/64; PULSE 93; RESP 17; TEMP 98.2
[2024-01-19 05:26] LABS: BASOPHILS % (AUTO) 1.5 % (0.0-2.0); EOSINOPHILS % (AUTO) 1.6 % (1.0-6.0); HEMATOCRIT 34.6 % (41-53); HEMOGLOBIN 12.1 g/dL (13.5-17.5); LYMPHOCYTES # (AUTO) 1.1 K/uL (1.0-4.8); MEAN CORPUSCULAR HEMOGLOBIN 33.9 pg (26.0-34.0); MEAN CORPUSCULAR HGB CONC 34.9 G/dL (31.0-37.0); MEAN CORPUSCULAR VOLUME 97 fL (80-100); MONOCYTES # (AUTO) 0.3 K/uL (0.1-1.0); NEUTROPHILS # (AUTO) 1.1 K/uL (1.8-7.7); NEUTROPHILS % (AUTO) 43.9 % (40.0-70.0); PLATELET COUNT (AUTO) 93 K/uL (150-450); RED BLOOD CELL COUNT(AUTO) 3.56 MIL/uL (4.50-5.90); RED CELL DISTRIBUTION WIDTH 14.5 % (11.5-14.5); WHITE BLOOD COUNT (AUTO) 2.6 K/uL (4.5-11.0)
[2024-01-19 05:34] LABS: ANION GAP 12 mmol/L (8-16); CALCIUM, TOTAL 7.8 mg/dL (8.8-10.5); CARBON DIOXIDE 22 mmol/L (22-29); CHLORIDE 100 mmol/L (98-107); CREATININE 0.74 mg/dL (0.60-1.30); GLOMERULAR FILTR. RATE CALC > 60 mL/min (>60); GLUCOSE,RANDOM 161 mg/dL (70-110); POTASSIUM 3.9 mmol/L (3.5-5.1); SODIUM SERUM 134 mmol/L (136-145); UREA NITROGEN, BLOOD 1 mg/dL (7-18)
[2024-01-19 06:31] LABS: GLUCOMETER DEV NAME(LOC) ICUN.5; GLUCOSE,POINT OF CARE 170 MG/DL (70-110)
[2024-01-19] MEDS ORDERED: ChlordiazePOXIDE HCL 10 MG CAPSULE PO PRN (07:00)
[2024-01-19 08:00] VITALS: BP 113/78; PULSE 105; RESP 19; TEMP 98.4
[2024-01-19] MEDS: ChlordiazePOXIDE HCL 10 MG CAPSULE PO SCH (08:33)
[2024-01-19 09:00] VITALS: BP 105/78; PULSE 105; RESP 19; TEMP 98.4
[2024-01-19 12:00] VITALS: BP 99/67; PULSE 108; RESP 14; TEMP 98.1
[2024-01-19] MEDS ORDERED: FOLI-130 PO (15:55)
[2024-01-19] MEDS ORDERED: NEED-462 MC (15:55)
[2024-01-19] MEDS ORDERED: CHLO10CA6 PO (15:55)
[2024-01-19] MEDS ORDERED: THIA100T80 PO ×2 (15:55)
[2024-01-19] MEDS ORDERED: INSU200I SQ (15:55)
[2024-01-19] MEDS ORDERED: INSU3INS3 SQ (15:55)
[2024-01-20 00:11] LABS: GLUCOMETER DEV NAME(LOC) ICUN.5; GLUCOSE,POINT OF CARE 214 MG/DL (70-110)
[2024-01-20] MEDS ORDERED: ChlordiazePOXIDE HCL 10 MG CAPSULE PO PRN (07:00)
== END 2024-01-19 17:15 | disposition home or self-care (01) | DRG 420 ==
LOC: EMS 08:06 → ICUN 11:22 → ICU 12:53
PROVIDERS: ADMIT Hospitalist; ATTEND Hospitalist
DX: E11.10 Type 2 diabetes mellitus with ketoacidosis without coma (principal); D61.818 Other pancytopenia; K76.0 Fatty (change of) liver, not elsewhere classified; E83.51 Hypocalcemia; E83.42 Hypomagnesemia; F99 Mental disorder, not otherwise specified; N20.0 Calculus of kidney; E87.6 Hypokalemia; K86.1 Other chronic pancreatitis; F10.239 Alcohol dependence with withdrawal, unspecified; Y90.6 Blood alcohol level of 120-199 mg/100 ml; Z79.4 Long term (current) use of insulin; Z59.02 Unsheltered homelessness; Z79.899 Other long term (current) drug therapy
CPT/HCPCS: 36600; 71045; 74177; 76705; 80048; 80053; 80307; 81001; 81002; 82009; 82010; 82550; 82693; 82805; 82962; 83036; 83605; 83690; 83735; 83880; 83930; 84100; 84484; 85025; 87040; 87081; 93005; 99285; C9113; G0480; G0481; J0610; J1644; J1815; J2060; J2270; J2405; J2543; J3411; J3475; J3480; J3490; J7030; J7050; J7060; Q9967; 36415-L1; 36415-TC; X7700

== ENCOUNTER 2024-02-26 11:19 | Inpatient (IN) | payer MEDICAID ==
[~2024-02-26] VITALS: Ht 167.6 cm; Wt 66.1 kg
[~2024-02-26 11:19] MED LIST changes: +CHLO10CA6 PO; -INSLAN SQ; -INSU100C6 SQ; +INSU200I SQ; +INSU3INS3 SQ; +NEED-462 MC; +THIA100T80 PO; -THIA100V4 IVP
[2024-02-26] MEDS ORDERED: GuaiFENesin/D-METHORPHAN [SUGAR-FREE] 200-20MG/10 ML SYRUP UDCUP PO PRN (12:15)
[2024-02-26] MEDS ORDERED: PROMETHAZINE HCL 25 MG TABLET PO PRN (12:15)
[2024-02-26] MEDS ORDERED: LOPERAMIDE HCL 2 MG CAPSULE PO PRN (12:15)
[2024-02-26] MEDS ORDERED: MAGNESIUM HYDROXIDE SUSPENSION 30 ML UDCUP PO PRN (12:15)
[2024-02-26] MEDS ORDERED: MAG HYDROX/ALUMINUM HYD/SIMETH ES 30 ML SUSPENSION UDCUP PO PRN (12:15)
[2024-02-26] MEDS ORDERED: GABAPENTIN 300 MG CAPSULE PO PRN (12:15)
[2024-02-26] MEDS ORDERED: HydrOXYzine PAMOATE 50 MG CAPSULE PO PRN (12:15)
[2024-02-26] MEDS ORDERED: OLANZapine 5 MG RAPDIS TABLET PO PRN (12:15)
[2024-02-26 18:16] VITALS: BP 124/83; PULSE 83; RESP 18; TEMP 97; O2SAT 100
[2024-02-26] MEDS ORDERED: DEXTROSE 50%-WATER 25 GM/50 ML SYRINGE IVP PRN (19:30)
[2024-02-26 20:52] VITALS: BP 126/87; PULSE 73; RESP 18; TEMP 98.4; O2SAT 97
[2024-02-26] MEDS: CYANOCOBALAMIN 1,000 MCG/ML VIAL IM ONE (20:54)
[2024-02-26 21:21] LABS: GLUCOMETER DEV NAME(LOC) 3EX.2; GLUCOSE,POINT OF CARE 148 MG/DL (70-110)
[2024-02-26 21:30] VITALS: BP 126/87; PULSE 73; RESP 18; TEMP 98.4; O2SAT 97
[2024-02-26] MEDS: LORazepam 2 MG TABLET PO PRN (21:31)
[2024-02-26] MEDS: THIAMINE 100 MG TABLET PO SCH (21:31)
[2024-02-26] MEDS: MELATONIN 5 MG TABLET PO SCH (21:31)
[2024-02-26] MEDS: ARIPiprazole 15 MG TABLET PO SCH (21:31)
[2024-02-26] MEDS: ACETAMINOPHEN 325 MG TABLET PO PRN (21:32)
[2024-02-26] MEDS: INSULIN LISPRO 100 UNITS/ML SQ PRN (21:44)
[2024-02-26] MEDS: ZOLPIDEM TARTRATE 10 MG TABLET PO PRN (22:10)
[2024-02-26 22:20] VITALS: RESP 18; TEMP 98.1
[2024-02-27 05:51] LABS: GLUCOMETER DEV NAME(LOC) 3EX.2; GLUCOSE,POINT OF CARE 88 MG/DL (70-110)
[2024-02-27 08:46] LABS: CHOL/HDL RATIO 2.9 (4.2-7.3); FREE T4 (FREE THYROXINE) 0.64 ng/dL (0.76-1.46); THYROID STIMULATING HORMONE 13.49 uIU/mL (0.36-3.74)
[2024-02-27] MEDS ORDERED: MULTIVITAMINS WITH MINERALS, THERAPEUTIC TABLET PO SCH (09:00)
[2024-02-27] MEDS: ACAMPROSATE CALCIUM 333 MG DR TABLET PO SCH (09:20)
[2024-02-27] MEDS: OMEGA-3/DHA/EPA/FISH OIL 1,000 MG CAPSULE PO SCH (09:28)
[2024-02-27] MEDS: DULoxetine HCL 20 MG CAPSULE PO SCH (09:28)
[2024-02-27] MEDS: FOLIC ACID 1 MG TABLET PO SCH (09:28)
[2024-02-27] MEDS: GABAPENTIN 300 MG CAPSULE PO SCH (09:29)
[2024-02-27] MEDS: PANTOPRAZOLE SODIUM 40 MG DR TABLET PO SCH (09:29)
[2024-02-27] MEDS: MULTIVITAMINS WITH MINERALS, THERAPEUTIC TABLET PO SCH (09:29)
[2024-02-27] MEDS: AmLODIPine BESYLATE 5 MG TABLET PO SCH (09:29)
[2024-02-27] MEDS: INSULIN GLARGINE,HUM.REC.ANLOG 100 UNITS/ML SQ SCH (09:48)
[2024-02-27] MEDS: ARIPiprazole ER SUSPENSION 400 MG PRE-FILLED DUAL CHAMBER SYRINGE IM ONE (09:49)
[2024-02-27 09:56] LABS: GLUCOMETER DEV NAME(LOC) 3E.I 2; GLUCOSE,POINT OF CARE 155 MG/DL (70-110)
[2024-02-27 11:36] LABS: GLUCOMETER DEV NAME(LOC) 3E.I 2; GLUCOSE,POINT OF CARE 199 MG/DL (70-110)
[2024-02-27] MEDS: LEVOTHYROXINE SODIUM 50 MCG TABLET PO SCH (11:54)
[2024-02-27 14:44] VITALS: BP 129/86; PULSE 68; RESP 18; TEMP 97.5; O2SAT 97
[2024-02-27 17:45] LABS: GLUCOMETER DEV NAME(LOC) 3EX.2; GLUCOSE,POINT OF CARE 257 MG/DL (70-110)
[2024-02-27] MEDS ORDERED: ARIP15TA27 PO (17:52)
[2024-02-27] MEDS ORDERED: NALT50TA6 PO (17:52)
[2024-02-27] MEDS ORDERED: ACAM333T7 PO (17:52)
[2024-02-27] MEDS ORDERED: GABA-1181 PO (17:52)
[2024-02-27] MEDS ORDERED: MELA5TAB40 PO (17:52)
[2024-02-27] MEDS ORDERED: OMEG-135 PO (17:52)
[2024-02-27] MEDS ORDERED: DULO20CA71 PO (17:52)
[2024-02-27] MEDS ORDERED: ARIP400S3 IM (17:52)
[2024-02-27 20:37] VITALS: BP 107/69; PULSE 97; RESP 18; TEMP 98.4; O2SAT 96
[2024-02-27 21:26] LABS: GLUCOMETER DEV NAME(LOC) 3EX.2; GLUCOSE,POINT OF CARE 222 MG/DL (70-110)
[2024-02-28 07:15] LABS: GLUCOMETER DEV NAME(LOC) 3EX.2; GLUCOSE,POINT OF CARE 169 MG/DL (70-110)
[2024-02-28 07:49] LABS: BASOPHILS % (AUTO) 0.9 % (0.0-2.0); EOSINOPHILS % (AUTO) 0.7 % (1.0-6.0); HEMATOCRIT 22.6 % (41-53); HEMOGLOBIN 8.1 g/dL (13.5-17.5); LYMPHOCYTES # (AUTO) 1.2 K/uL (1.0-4.8); LYMPHOCYTES % (AUTO) 10.1 % (22.0-44.0); MEAN CORPUSCULAR HEMOGLOBIN 36.6 pg (26.0-34.0); MEAN CORPUSCULAR HGB CONC 35.6 G/dL (31.0-37.0); MEAN CORPUSCULAR VOLUME 103 fL (80-100); MONOCYTES # (AUTO) 0.6 K/uL (0.1-1.0); MONOCYTES % (AUTO) 4.8 % (2.0-9.0); NEUTROPHILS # (AUTO) 10.2 K/uL (1.8-7.7); NEUTROPHILS % (AUTO) 83.5 % (40.0-70.0); PLATELET COUNT (AUTO) 410 K/uL (150-450); RED CELL DISTRIBUTION WIDTH 18.3 % (11.5-14.5); WHITE BLOOD COUNT (AUTO) 12.2 K/uL (4.5-11.0)
[2024-02-28 08:04] LABS: CHOL/HDL RATIO 3.1 (4.2-7.3)
[2024-02-28 09:18] VITALS: BP 129/85; PULSE 90; RESP 18; TEMP 98.4; O2SAT 96
[2024-02-28] MEDS: INSULIN GLARGINE,HUM.REC.ANLOG 100 UNITS/ML SQ SCH (09:33)
[2024-02-28 09:36] LABS: GLUCOMETER DEV NAME(LOC) 3E.I 2; GLUCOSE,POINT OF CARE 266 MG/DL (70-110)
[2024-02-28 11:30] LABS: GLUCOMETER DEV NAME(LOC) 3E.I 2; GLUCOSE,POINT OF CARE 240 MG/DL (70-110)
[2024-02-28] MEDS ORDERED: AMLO-257 PO (12:16)
[2024-02-28] MEDS ORDERED: INSLAN SQ (12:16)
[2024-02-28] MEDS ORDERED: LEVO50 PO (12:17)
[2024-02-28 15:10] LABS: RBC MORPHOLOGY COMMENT ABNORMAL RBC MORPH
[2024-03-26] MEDS ORDERED: ARIPiprazole ER SUSPENSION 400 MG PRE-FILLED DUAL CHAMBER SYRINGE IM SCH (09:00)
== END 2024-02-28 16:35 | disposition home or self-care (01) | DRG 750 ==
LOC: 3EI 17:40
PROVIDERS: ADMIT Psychiatry & Neurology Psychiatry; ATTEND Psychiatry & Neurology Psychiatry
PROC: GZHZZZZ Group Psychotherapy (ICD-10-PCS; principal; 2024-02-26)
PROC: GZ51ZZZ Individual Psychotherapy, Behavioral (ICD-10-PCS; 2024-02-26)
PROC: GZ58ZZZ Individual Psychotherapy, Cognitive-Behavioral (ICD-10-PCS; 2024-02-26)
PROC: GZ56ZZZ Individual Psychotherapy, Supportive (ICD-10-PCS; 2024-02-27)
DX: F25.9 Schizoaffective disorder, unspecified (principal); E11.22 Type 2 diabetes mellitus with diabetic chronic kidney disease; F17.210 Nicotine dependence, cigarettes, uncomplicated; F10.20 Alcohol dependence, uncomplicated; D64.9 Anemia, unspecified; J44.9 Chronic obstructive pulmonary disease, unspecified; N18.9 Chronic kidney disease, unspecified; I12.9 Hypertensive chronic kidney disease with stage 1 through stage 4 chronic kidney disease, or unspecified chronic kidney disease; F19.10 Other psychoactive substance abuse, uncomplicated; K21.9 Gastro-esophageal reflux disease without esophagitis; F32.A Depression, unspecified; Z59.00 Homelessness unspecified
CPT/HCPCS: 80061; 82962; 84439; 84443; 85025; 86592; 87081; J0401; J1815; J3420; Q9967